=== PATIENT | male | born 1940 | race Caucasian/White ===

== ENCOUNTER 2016-06-15 04:46 | Emergency (ER) | payer MEDICARE, BC ==
--- NOTE | ~2016-06-15 | ER ---
PATIENT'S NAME: LEO AMAYA [facility] AGE: 76 Y [address] ROOM: [place] [address] LOCATION: [facility] ADMIT DATE: 06/15/2016 ER/Outpatient Report DISCHARGE DATE: 06/15/2016 FAMILY PHYSICIAN: Eugene Lott MD ATTENDING PHYSICIAN: Ivan Ndiaye CHIEF COMPLAINT: Hip pain. HISTORY OF PRESENT ILLNESS: The patient was at home this morning when he was trying to get up. He states that he had been to the restroom and got tangled up with the dogs and fell on his right side. This happened about an hour prior to arrival. He states he takes a daily aspirin. He has never had anything like this but reports that he has been feeling relatively normal otherwise. He noticed some swelling and bruising over the right hip region, which prompted him to come in this morning. He is accompanied by his . He denies any significant other medical issues. The patient explicitly denies head injury, loss of consciousness, or other concerning presentation. PAST MEDICAL HISTORY: Documented on the record and reviewed by me. SOCIAL HISTORY: Documented on the record and reviewed by me. MEDICATIONS: Documented on the record and reviewed by me. ALLERGIES: DOCUMENTED ON THE RECORD AND REVIEWED BY ME. REVIEW OF SYSTEMS: All systems were reviewed and negative except as noted in the HPI. PHYSICAL EXAMINATION: VITAL SIGNS: Blood pressure 126/60, pulse is 69, respiratory rate is 16, temperature 98.7, SpO2 is 97% on room air. GENERAL: An age-appropriate male, in no obvious pain or distress. NEUROLOGIC: Awake and alert. GCS is 15. No other focal abnormalities or deficits are appreciated. Pain with movement but no neurologic impairment. HEENT: Normocephalic, atraumatic. Eyes are PERRL. Oropharynx is clear. NECK: Supple. Trachea is midline. PATIENT'S NAME: LEO AMAYA [facility] AGE: 76 Y [address] ROOM: [place], [place] [address] LOCATION: [facility] ADMIT DATE: 06/15/2016 ER/Outpatient Report DISCHARGE DATE: 06/15/2016 FAMILY PHYSICIAN: Eugene Lott MD ATTENDING PHYSICIAN: Ivan Ndiaye CHEST: Heart is regular rate and rhythm with no murmurs. LUNGS: Clear to auscultation bilaterally throughout with no rhonchi, wheezes, or rales. ABDOMEN: Soft, nontender, and nondistended. No rebound or guarding. BACK: Does not have any focal tenderness, but there is diffuse tenderness beginning of the paraspinal region, radiating entirely throughout the right posterior gluteal region as well. It is firm. No erythema. ABDOMEN: Soft, nontender, and nondistended. No rebound, guarding, or masses. EXTREMITIES: Warm and well perfused. They are grossly unremarkable except for a large expected hematoma over the right gluteal region to the posterior hip. It is firm without induration. The skin is still blanchable. It is not particularly painful to range of motion activities. The right leg is not shortened, and there is no limited range of motion of the hip. LABORATORY DATA AND X-RAYS: Plain films of the pelvis and hip do not reveal any fractures per my read. Labs are mostly pending. WBC 6.0, hemoglobin of 10.9, and platelets of 84. Remainder of labs are pending. EKG is a paced rhythm with no significant morphologic changes compared to prior from 05/03/2016. IMPRESSION: 1. Fall. 2. Large right-sided hematoma of the posterior hip and pelvis. EMERGENCY DEPARTMENT COURSE: The patient was seen and evaluated as above. Based on the size of the hematoma and its rapid expansion, I am concerned that the patient may be bleeding. I obtained labs as noted above. No significant anticoagulation on board. The patient will require CT of the pelvis at minimum. No pelvic fracture appreciated. He did not require any pain medication while in the emergency department. I will hand care off this patient to Dr. Hardy at 0600 hours for further evaluation and treatment. Please see his dictation for completion of encounter and other details. MD JOSE NASH/ruben /[id number] d: 06/15/16 2359 t: 06/27/16 0826, OUTPATIENT REPORT
--- NOTE | ~2016-06-15 | ER ---
PATIENT'S NAME: LEO AMAYA [facility] AGE: 76 Y [address] ROOM: [place] [address] LOCATION: [facility] ADMIT DATE: 06/15/2016 ER/Outpatient Report DISCHARGE DATE: 06/15/2016 FAMILY PHYSICIAN: Eugene Lott MD ATTENDING PHYSICIAN: Ivan Ndiaye HISTORY OF PRESENT ILLNESS: The patient was initially seen and evaluated by Dr. Ndiaye. Please see his dictation for chief complaint, history of present illness, past medical history, past surgical history, social history, allergies, medications, review of systems, and physical exam. I did discuss the case with Dr. Ndiaye. Transfer of care was made to myself at shift change. I did see and evaluate the patient at 0556 hours. He does report he had a ground-level fall at approximately 3:30 in the morning. The patient does have a history of dementia. He has had frequent falls recently, per his who was at the bedside. He has swelling noted to the right gluteal region. He is on aspirin for anticoagulation. He was lying on the floor in an open area. Apparently, he gets disoriented at night with his dementia and has fallen multiple times recently. He was able to walk back to the bed with the assistance of his . He denies any loss of consciousness. PAST MEDICAL HISTORY: Dementia, coronary artery disease, and stroke. PAST SURGICAL HISTORY: CABG, valve repair, and ankle repair. SOCIAL HISTORY: The patient denies any tobacco, alcohol, or illicit drug use. ALLERGIES: NO KNOWN DRUG ALLERGIES. MEDICATIONS: Please see list. REVIEW OF SYSTEMS: All systems are reviewed by myself and are negative with the exception of those discussed in the HPI and Past Medical History. PHYSICAL EXAMINATION: VITAL SIGNS: Weight is 73 kg, blood pressure 126/60, pulse 69, respiratory rate 16, temperature 98.7, and oxygen saturation 97% on room air. GENERAL: The patient is a 76-year-old male who appears stated age, in no acute distress at this time. PATIENT'S NAME: LEO AMAYA [facility] AGE: 76 Y [address] ROOM: [place], [place] [address] LOCATION: [facility] ADMIT DATE: 06/15/2016 ER/Outpatient Report DISCHARGE DATE: 06/15/2016 FAMILY PHYSICIAN: Eugene Lott MD ATTENDING PHYSICIAN: Ivan Ndiaye HEENT: Head is normocephalic and atraumatic. Pupils are equal, round, and reactive to light and accommodation. Extraocular motions are intact. Nares are patent bilaterally. TMs are clear. Oropharynx is clear. NECK: Supple. There is no nuchal rigidity. CARDIOVASCULAR: Regular rate and rhythm. LUNGS: Clear to auscultation bilaterally. No wheezes, rales, or rhonchi. ABDOMEN: Soft, nontender, and nondistended. No rebound, rigidity, or guarding. MUSCULOSKELETAL: The patient moves all 4 extremities. He has normal range of motion. 2/4 pulses DP and PT, as well as radial pulses equal bilaterally. SKIN: The patient does have a larger hematoma and ecchymosis noted to the right gluteal region. He also has old-appearing bruises to the abdomen and the left chest wall. LABORATORY AND DIAGNOSTIC DATA: Labs and x-rays are obtained. EKG is obtained and shows V-paced rhythm with a rate of 70, QTc of 508, and AR of 163. Sgarbossa criteria are negative. No significant change from 05/03/2016. CT scan of the brain is obtained. I have discussed the results with the radiologist, shows no acute process. CT scan of the pelvis is obtained, shows nondisplaced right L4 transverse process fracture. Recommend spinal imaging. There is a large right flank soft tissue hematoma. CT imaging of the C, T, and L-spines are obtained. I have discussed the results with the radiologist. There is evidence of a transverse process fracture at L3-L4. CBC is unremarkable except for hemoglobin 10.9, hematocrit 31.2, and platelets 84. Coags are normal. Urinalysis is unremarkable. CMP is unremarkable. LFTs are unremarkable. Urinalysis is negative. IMPRESSION: 1. L3-L4 right transverse process fracture, nondisplaced. 2. Ground-level fall, with history of recent multiple falls. 3. Dementia. 4. Thrombocytopenia. 5. Initial visit. EMERGENCY DEPARTMENT COURSE: The patient was brought back to the examination room. Initially seen and evaluated by Dr. Ndiaye, please see his dictation. Transfer of care was made to myself. Laboratory analysis and imaging were reviewed. The patient was required to lay flat after the imaging while awaiting further imaging of the patient's lumbar spine. He did require a Khan due to immobility. After the results were obtained, they contacted Dr. Muniz and discussed the transverse process fracture with him. The patient's Khan was removed. He is up and ambulating throughout the emergency department. He has not required any pain medicine here in the emergency department. He is urinating on his own at this PATIENT'S NAME: LEO AMAYA [facility] AGE: 76 Y [address] ROOM: [place] [address] LOCATION: [facility] ADMIT DATE: 06/15/2016 ER/Outpatient Report DISCHARGE DATE: 06/15/2016 FAMILY PHYSICIAN: Eugene Lott MD ATTENDING PHYSICIAN: Ivan Ndiaye time. He has no saddle anesthesia. I have had a discussion with the patient's family about his issues with falling. They have said they have started to consider they may need more help, would like trying a walker at this time, and perhaps will use a bed alarm at night for assistance. I do feel this is reasonable at this time. I discussed I would like him to follow up with Dr. Lott and discuss with him as well as follow up with Dr. Muniz as needed for the back pain. I have written a prescription for [place] with sedation warning, as well as a walker. I have discussed return to care instructions including worsening symptoms, loss of bowel or bladder, saddle anesthesia, or any other concerns, to return to the emergency department as soon as possible. The patient is agreeable. Family is agreeable. They are without further questions at this time. DISPOSITION: The patient is discharged to home in good condition. DO CRISTOBAL BRISENO/ruben /[id number] d: 06/15/16 1338 t: 06/15/16 1652, OUTPATIENT REPORT
[~2016-06-15 04:46] MED LIST changes: -AYR50 ML NOSE
[2016-06-15 05:47] LABS: BASOPHIL % 0.7 %; EOSINOPHIL # 0.1 K/uL (0.0-0.5); HEMATOCRIT 31.2 % (37.0-53.0); HEMOGLOBIN 10.9 g/dL (11.0-16.0); IMMATURE GRANULOCYTE # 0.1 K/uL (0.0-0.3); IMMATURE GRANULOCYTE % 0.8 %; LYMPHOCYTE # 1.7 K/uL (0.8-4.0); LYMPHOCYTE % 28.3 %; MCH 35.3 pg (27.0-34.0); MCHC 34.9 gm/dL (32.0-36.5); MONOCYTE # 0.6 K/uL (0.0-1.0); MONOCYTE % 9.1 %; MPV 7.7 fl (9.4-12.4); NEUTROPHIL # (ANC) 3.6 K/uL (1.4-9.0); NEUTROPHIL % 59.1 %; NRBC % 0 /100WBC (0-0.00); PLATELET COUNT 84 K/uL (150-450); RBC 3.09 M/uL (3.50-5.50); RDW-CV 13.1 % (11.9-14.6)
[2016-06-15 05:56] LABS: INR - (THERAPEUTIC) 1.1 (0.9-1.1); PROTIME 11.9 SECONDS (9.6-11.1); PTT 29 SECONDS (25-32)
[2016-06-15 06:07] LABS: ALBUMIN 2.9 gm/dL (3.5-5.0); ALK PHOS 64 IU/L (33-138); ALT 23 IU/L (12-78); AST 35 IU/L (10-40); BLOOD UREA NITROGEN 21 mg/dL (6-24); CALCIUM 8.5 mg/dL (8.5-10.5); CHLORIDE 98 mMol/L (96-110); CO2 22 mMol/L (22-32); CREATININE 1.1 mg/dL (0.6-1.3); ESTIMATED GFR (MDRD EQUATION) > 60; SODIUM 132 mMol/L (135-145); TOTAL PROTEIN 6.4 g/dL (6.0-8.4)
[2016-06-15 06:10] LABS: TOTAL BILIRUBIN 0.8 mg/dL (0.0-1.5)
[2016-06-15 08:40] LABS: BILIRUBIN URINE NEGATIVE (NEGATIVE); BLOOD URINE 25 /UL (NEGATIVE); COLOR URINE STRAW (YELLOW); GLUCOSE URINE NEGATIVE (NEGATIVE); KETONE URINE NEGATIVE (NEGATIVE); LEUKOCYTES URINE NEGATIVE /UL (NEGATIVE); NITRITE URINE NEGATIVE (NEGATIVE); PROTEIN URINE NEGATIVE (NEGATIVE); SPEC GRAVITY URINE 1.005 (1.003-1.035); TURBIDITY URINE CLEAR (CLEAR); UROBILINOGEN URINE NORMAL (NORMAL)
[2016-06-15 08:56] LABS: EPITHELIAL URINE 0-2 #/HPF (NEGATIVE); RBC URINE 0-2 #/HPF (NEGATIVE); WBC URINE 0-2 #/HPF (NEGATIVE)
[2016-06-15 08:57] LABS: AMORPHOUS URINE 1+ (NEGATIVE); BACTERIA URINE RARE (NEGATIVE); MUCUS URINE 1+ (NEGATIVE)
[2016-06-15] MEDS ORDERED: AYR50 ML NOSE (13:39)
== END 2016-06-15 09:52 | disposition disaster alternative care site (69) ==
LOC: GACC 04:46
PROVIDERS: Emergency Medicine
DX: S32.039A Unspecified fracture of third lumbar vertebra, initial encounter for closed fracture (principal); S32.049A Unspecified fracture of fourth lumbar vertebra, initial encounter for closed fracture; S70.01XA Contusion of right hip, initial encounter; S30.0XXA Contusion of lower back and pelvis, initial encounter; F03.90 Unspecified dementia, unspecified severity, without behavioral disturbance, psychotic disturbance, mood disturbance, and anxiety; I25.10 Atherosclerotic heart disease of native coronary artery without angina pectoris; R29.6 Repeated falls; D69.6 Thrombocytopenia, unspecified; Z86.73 Personal history of transient ischemic attack (TIA), and cerebral infarction without residual deficits; Z79.01 Long term (current) use of anticoagulants; Z98.890 Other specified postprocedural states; Z79.82 Long term (current) use of aspirin; Z95.1 Presence of aortocoronary bypass graft; W18.30XA Fall on same level, unspecified, initial encounter
CPT/HCPCS: Q9967

== ENCOUNTER 2016-06-15 10:55 | Inpatient (IN) | payer MEDICARE, BC ==
[~2016-06-15] VITALS: Ht 172.7 cm; Wt 73.3 kg
--- NOTE | ~2016-06-15 | CON ---
PATIENT'S NAME: LEO AMAYA [facility] AGE: 76 Y [address] ROOM: [place] [address] [place] [facility] [place]: 06/15/2016 Consultation DISCHARGE DATE: FAMILY PHYSICIAN: JULIETH BURKETT MD ATTENDING PHYSICIAN: SKYE MCINTOSH V REFERRING PHYSICIAN: Adrian Mortensen MD Consult for Dr. Meehan. HISTORY OF PRESENT ILLNESS: This pleasant 76-year-old gentleman is referred for rehab evaluation, admitted on 06/15/2016 with history of dementia, was admitted with history of frequent falls that happened suddenly, he collapsed. No seizure disorder and does not know of any trauma, no biting of tongue. No other issues have been having this suddenly when he is up usually. Almost every time he stands up, he has it. This has been happening for the last few weeks and he has fallen for 6 times at least during the last 2 to 3 weeks. No witnessed seizure disorder. No fever. No headaches. Denied any nausea, vomiting. No fever, no cough, no sputum, no chest pain. PAST MEDICAL HISTORY: Past history of significant followin. Coronary artery disease, status post CABG and multiple stenting. 2. Atrial fibrillation, Watchman procedure. 3. Dementia, since he had 2 strokes before but recovered well. Had expressive aphasia during one of them and he recovered well after the surgical procedure on his heart. 4. Diet-controlled diabetes. 5. Cervical spine stenosis status post fusion. 6. Benign prostatic hypertrophy, depression. 7. Reflux gastric disease. 8. Distant history of tobacco use. At the present time alert, oriented, needs a little bit cueing on and off. His voice is clear and not wet. He seems to be struggling with his executive functions. He cannot multiply well, but he is also needing little cueing to remember details of people around him, like his and his daughter's name. At the present time, he is continent of his bowel bladder, tells me he has low back pain that radiates to his right buttock. PHYSICAL EXAMINATION: PATIENT'S NAME: LEO AMAYA [facility] AGE: 76 Y [address] ROOM: [place] [address] [place] [facility] [place]: 06/15/2016 Consultation DISCHARGE DATE: FAMILY PHYSICIAN: JULIETH BURKETT MD ATTENDING PHYSICIAN: SKYE MCINTOSH V VITAL SIGNS: Blood pressure 138/67, temperature 98.4, pulse 78, respirations 14. He is 5 feet 8 inches tall and weighs 73.3 kg. MEDICATIONS: He is on the following medications: 1. Zocor. 2. Protonix. 3. Namenda. 4. Mag-Ox 400. 5. Ferrous sulfate. 6. Tikosyn. 7. Vitamin B12. 8. Flomax. 9. Coreg. 10. Carafate. 11. NaCl 0.9%. 12. KCl. 13. Lorena-3. 14. Multivitamin. 15. Levothyroxine. 16. Folic acid. 17. Prozac. 18. TriCor. 19. Aspirin. 20. Zofran. 21. Oxycodone. ASSESSMENT AND PLAN: We will start him on PT, OT, and speech. I feel this gentleman is doing well. I feel that we need to also address if there is any stenosis in his back and spinal cord and also most probably he is having these symptoms secondary to postural hypertension as described, probably following on his blood pressure medication will be a good idea. I will follow on him closely. I feel that he can go on outpatient basis. He should not drive until he is re-evaluated. All the above was explained to his in detail and himself and his daughter, they verbalized understanding and in agreement. Thank you for this referral. I will be following alongside with you. ADRIAN MORTENSEN MD PATIENT'S NAME: LEO AMAYA [facility] AGE: 76 Y [address] ROOM: [place] [address] [place] [facility] [place] DATE: 06/15/2016 Consultation DISCHARGE DATE: FAMILY PHYSICIAN: JULIETH BURKETT MD ATTENDING PHYSICIAN: SKYE MCINTOSH V WMS/modl /[id number] d: 06/17/16 1429 t: 06/18/16 1512, CONSULTATION REPORT
--- NOTE | ~2016-06-15 | HP ---
PATIENT'S NAME: LEO AMAYA [facility] AGE: 76 Y [address] ROOM: [place] [address] LOCATION: [facility] [place] ADMIT DATE: 06/15/2016 History & Physical DISCHARGE DATE: FAMILY PHYSICIAN: JULIETH BURKETT MD ATTENDING PHYSICIAN: SKYE MCINTOSH V DATE OF SERVICE: CHIEF COMPLAINT: Frequent falls. HISTORY OF PRESENT ILLNESS: This is provided entirely by the family as the patient has fairly significant dementia. This is a 76-year-old male who has multiple cardiac comorbidities as listed below. He has had increasing frequency of falls at home. These falls described as usually just collapsing while walking around. They are not associated with any convulsive activity or loss of consciousness. It sounds like it is primarily a balance issue. He sustained 5-6 of these falls at home in the last several weeks. He was brought to the ER earlier today. He was found to have a large right flank hematoma as well as several transverse processes fractures. A workup here in the ER was unremarkable aside from those findings. He was sent home from the ER, and upon getting home, the patient has sustained another fall, though it appears that at this time he might have had a transient loss of consciousness, though after he woke up, the family denies any convulsive activity. The patient himself is unable to provide any helpful history. REVIEW OF SYSTEMS: Negative for any recent chest pain, shortness of breath, weight loss, nausea, vomiting, diarrhea, or palpitations. All systems have been reviewed and are negative aside from pertinent positives as mentioned above. PAST MEDICAL HISTORY: As provided by the family. 1. Significant coronary artery disease, status post CABG. 2. Multiple stents. 3. Atrial fibrillation. 4. Status post Watchman procedure. 5. Currently on Tikosyn, but not on anticoagulation. 6. Moderate dementia, seen by Neurology. 7. Diet-controlled diabetes. 8. Spinal fusion of the cervical spine. 9. Depression. 10. Benign prostatic hyperplasia. 11. AICD. PATIENT'S NAME: LEO AMAYA [facility] AGE: 76 Y [address] ROOM: [place] [address] LOCATION: [facility] [place] ADMIT DATE: 06/15/2016 History & Physical DISCHARGE DATE: FAMILY PHYSICIAN: JULIETH BURKETT MD ATTENDING PHYSICIAN: SKYE MCINTOSH V SOCIAL HISTORY: Significant for distant history of tobacco use. FAMILY HISTORY: Reviewed and is noncontributory. CURRENT MEDICATIONS: 1. Fenofibrate. 2. Coreg. 3. Fluoxetine. 4. Pantoprazole. 5. Fish oil. 6. Iron. 7. Flomax twice a day. 8. Carafate. 9. Magnesium oxide. 10. Potassium chloride. 11. 81 mg aspirin. 12. Tikosyn. 13. Synthroid. 14. Folic acid. 15. Multivitamin. 16. Namenda. 17. Simvastatin. 18. Gabapentin. 19. Pantoprazole. PHYSICAL EXAMINATION: VITAL SIGNS: At this point, his heart rate is 60, blood pressure is 84/50, saturating 100% on room air, afebrile, respirations are 16. GENERAL: Appears well-developed, well-nourished elderly male, in no acute distress. PSYCHIATRIC: Reveals the patient is alert and oriented x2, though I believe that his orientation to location fleeting, aside from that, neurologic exam is nonfocal. EYES: Show pupils are equal and reactive to light. LYMPHATIC: Shows no cervical lymphadenopathy. ENDOCRINE: Shows no thyromegaly. LUNGS: Clear to auscultation in all hernandez. HEART: Reveals regular rate and rhythm without appreciable murmurs, gallops, or rubs. ABDOMEN: Soft, nontender, nondistended. : Reveals no costovertebral angle tenderness. VASCULAR: 2+ pedal pulses. PATIENT'S NAME: LEO AMAYA [facility] AGE: 76 Y [address] ROOM: [address] [address] LOCATION: [facility] [place] ADMIT DATE: 06/15/2016 History & Physical DISCHARGE DATE: FAMILY PHYSICIAN: JULIETH BURKETT MD ATTENDING PHYSICIAN: SKYE MCINTOSH V MUSCULOSKELETAL: Shows some point tenderness over his thoracolumbar spine. SKIN: Reveals ecchymosis over his right abdomen as well as his right flank. LABORATORY DATA: Studies from the ER, significant for sodium 132, albumin of 2.9, MCV of 101, platelets of 84. Negative urine. EKG shows AV paced rhythm. Multiple imaging studies are significant for degenerative spine disease at lumbar spine, fractures at the right L3 and L4 transverse processes. ASSESSMENT AND PLAN: This is a 76-year-old male with advanced [id number] dementia and multiple falls. He will be admitted for observation. Individual problems to be addressed as follows, 1. Multiple falls. I did notice that his blood pressure is quite low in the ER. The patient is on Flomax b.i.d. as well as on carvedilol. We will workup orthostatic hypotension as one of the sources for his falls with several measurements of orthostatic vital signs. We may have to adjust medications based upon that. The patient does have an AICD and we will interrogate that, and consider cardiology consultation, if there are any abnormalities in the function of his AICD. I am wondering if gabapentin may somehow be related to his falls. We will evaluate that once the above investigations are completed. 1. The patient does have some microcytosis and we will check his B12 and folate levels as these may sometimes contribute. We will also check a TSH. 2. Atrial fibrillation. We will continue the patient on his current Tikosyn and Coreg. The Coreg may have to be adjusted, if we do find hypotension as an underlying etiology for his fall. 3. Diet-controlled diabetes. We will monitor his Accu-Cheks. 4. Coronary artery disease. We will continue him on his aspirin and statin. 5. Status post fall with multiple fractures of the transverse processes. We will get a pain control and PT/OT. 6. Flank hematoma. We will monitor his hemoglobin counts to make sure it is not a significant anemia that developed from his bleed. 7. Deep venous thrombosis prophylaxis. Will be nonpharmacologic given ongoing hemorrhage, but might have to be converted to pharmacologic later on. 8. Additional management depend on clinical course. Time dedicated to this patient's encounter is 35 minutes. PATIENT'S NAME: LEO AMAYA [facility] AGE: 76 Y [address] ROOM: [place] [address] LOCATION: [facility] [place] ADMIT DATE: 06/15/2016 History & Physical DISCHARGE DATE: FAMILY PHYSICIAN: JULIETH BURKETT MD ATTENDING PHYSICIAN: SKYE MCINTOSH V MD TODD DUNAWAY/modl /[id number] D: [id number] T: [id number] HISTORY & PHYSICAL
--- NOTE | ~2016-06-15 | DS ---
PATIENT'S NAME: LEO AMAYA [facility] AGE: 76 Y [address] ROOM: [address] [address] [place] [facility] [place]: 06[place]19/2016 Discharge Summary DISCHARGE DATE: 06/21/2016 FAMILY PHYSICIAN: Eugene Lott MD ATTENDING PHYSICIAN: Austen Jaramillo V PRINCIPAL DIAGNOSES: 1. Orthostatic hypotension. 2. Acute blood loss anemia. 3. Recurrent falls. 4. Bilateral gluteal hematoma. 5. Dementia. 6. Paroxysmal atrial fibrillation. 7. Diabetes. HOSPITAL COURSE: This is a 76-year-old male, history of dementia, diabetes, paroxysmal atrial fibrillation, not on anticoagulation due to recurrent falls, and high bleeding risk, who presents with an episode of what appeared to be a syncopal one. The patient does have a history of recurrent falls at home and stays at home with . The patient was noted to be orthostatic positive upon admission. The patient's home blood pressure medications were held, and he was given gentle IV fluid upon admission. Of note, the patient was known to be on Namenda 10 mg for dementia, and it is known to cause orthostatic symptoms. This had been held throughout the patient's admission, and the patient did well from orthostatic point of view during the hospitalization. The plan is to continue to hold and discontinue Namenda indefinitely. In addition to that, the patient was noted to have a hemoglobin drop of about 2 g, which is attributed to the large gluteal hematoma he has from injuries sustained from his falls. Hemoglobin today is 7.8, baseline is around 9, but hemoglobin trend had been stable around this number for the past 2 days. At this point, safe to discharge the patient and have him follow up with PCP in 1 week and recheck a hemoglobin trend. From the anemia standpoint, the patient appears to be asymptomatic from it. We will discharge the patient on p.o. iron supplement as well. PHYSICAL EXAMINATION: GENERAL: The patient is awake, alert, oriented x3, in no acute distress. CHEST: Clear to auscultation bilaterally. HEART: S1, S2. Regular rate and rhythm. ABDOMEN: Soft, nontender, nondistended. EXTREMITIES: Without edema. NEUROLOGIC: Grossly nonfocal. DISPOSITION: The patient to be discharged to [facility] [place] and is on her way to pick him up. PATIENT'S NAME: LEO AMAYA [facility] AGE: 76 Y [address] ROOM: [place] [address] [place] [facility] [place]: 06/19/2016 Discharge Summary DISCHARGE DATE: 06/21/2016 FAMILY PHYSICIAN: Eugene Lott MD ATTENDING PHYSICIAN: Austen Jaramillo V Greater than 30 minutes were spent in discharge planning and facilitating. MD MARLENE BARNHART/modl /[id number] d: 06/22/16 0308 t: 07/09/16 1418, DISCHARGE SUMMARY
--- NOTE | ~2016-06-15 | ER ---
PATIENT'S NAME: LEO AMAYA [facility] AGE: 76 Y [address] ROOM: [address] [address] LOCATION: [facility] [place] ADMIT DATE: 06/15/2016 ER/Outpatient Report DISCHARGE DATE: FAMILY PHYSICIAN: JULIETH BURKETT MD ATTENDING PHYSICIAN: SKYE MCINTOSH V TIME OF ARRIVAL: 1055 hours. TIME OF EVALUATION: 1055 hours. CHIEF COMPLAINT: Fall. HISTORY OF PRESENT ILLNESS: The patient is a 76-year-old male who presents to the emergency department today with a chief complaint of fall. The patient was seen and evaluated by myself just prior to this fall. The patient has had multiple falls recently, please see my previous dictation from previous ER encounter. Briefly, the patient has had those recent falls. In consultation with the patient's , we were going to attempt to transition the patient home with a walker for assistance in ambulation; however, when the patient was getting out of the car, his legs just gave out, and he fell once again. They were able to assist him to the garage walking where he had an episode where he flung his head back and eyes rolled into the back of his head. There was no seizure-like activity. Upon arrival here, the patient currently denies any chest pain. No shortness of breath. No fevers or chills. No nausea or vomiting. No diarrhea or constipation. He reports he feels fine at this time. He does have some right lumbar back pain and some mild pain along his gluteus region. PAST MEDICAL HISTORY: Heart disease and stroke. PAST SURGICAL HISTORY: CABG, valve repair, and ankle repair. SOCIAL HISTORY: The patient quit smoking 30 years ago. Denies any alcohol or illicit drug use. ALLERGIES: NO KNOWN DRUG ALLERGIES. MEDICATIONS: PATIENT'S NAME: LEO AMAYA [facility] AGE: 76 Y [address] ROOM: [address] [address] LOCATION: [facility] [place] ADMIT DATE: 06/15/2016 ER/Outpatient Report DISCHARGE DATE: FAMILY PHYSICIAN: JULIETH BURKETT MD ATTENDING PHYSICIAN: SKYE MCINTOSH V Please see list. REVIEW OF SYSTEMS: All systems are reviewed by myself and are negative with the exception of those discussed in the HPI and Past Medical History. PHYSICAL EXAMINATION: VITAL SIGNS: Weight 73 kg, blood pressure 93/67, pulse 91, respiratory rate 20, temperature 98.6, and oxygen saturation 98% on room air. GENERAL: The patient is a 76-year-old male who appears stated age, in no acute distress at this time. HEENT: Normocephalic, atraumatic. Pupils are equal, round, and reactive to light and accommodation. Extraocular motions are intact. Nares are patent bilaterally. TMs are clear. Oropharynx is clear. NECK: Supple. There is no nuchal rigidity. CARDIOVASCULAR: Regular rate and rhythm. LUNGS: Clear to auscultation. ABDOMEN: Soft, nontender, and nondistended. No rebound, rigidity, or guarding. MUSCULOSKELETAL: The patient has full range of motion. No bony tenderness to palpation. SKIN: The patient does have the multiple areas of old bruising on the abdomen and the anterior chest wall. He does have a hematoma in the right gluteal region. LABS AND X-RAYS: Please see previous labs and x-rays. IMPRESSION: 1. L3 and L4 transverse process fractures, acute. 2. Hematoma to right gluteal region. 3. Immobility. 4. Dementia. 5. Initial visit. EMERGENCY DEPARTMENT COURSE: The patient was brought back to the examination room. Seen and evaluated by myself. IV was established. Laboratory analysis was reviewed from previous visit. I have discussed with the family that the patient certainly seems to have some immobility issues. I have discussed with them that I would recommend admission to the hospital for further evaluation, treatment, and management. They are agreeable. I have contacted Dr. Mcintosh. He has seen and evaluated the patient here in the emergency department and does agree to accept the patient for further evaluation, treatment, and management. PATIENT'S NAME: LEO AMAYA [facility] AGE: 76 Y [address] ROOM: [address] [address] LOCATION: [facility] [place] ADMIT DATE: 06/15/2016 ER/Outpatient Report DISCHARGE DATE: FAMILY PHYSICIAN: JULIETH BURKETT MD ATTENDING PHYSICIAN: SKYE MCINTOSH V DISPOSITION: The patient is admitted under the care of the Hospitalist Service and Dr. Mcintosh in stable condition. JOCELYNE J DO CRISTOBAL OLIVA/bobl /[id number] d: 06/15/16 1450 t: 06/15/16 1652, OUTPATIENT REPORT
[2016-06-15] MEDS ORDERED: AYR50 ML NOSE (13:39)
[2016-06-15 14:53] LABS: HEMATOCRIT 32.5 % (37.0-53.0); HEMOGLOBIN 11.4 g/dL (11.0-16.0)
[2016-06-16 05:14] LABS: HEMOGLOBIN 9.8 g/dL (11.0-16.0)
[2016-06-17 05:06] LABS: BASOPHIL % 0.4 %; EOSINOPHIL # 0.1 K/uL (0.0-0.5); EOSINOPHIL % 1.8 %; HEMATOCRIT 26.1 % (37.0-53.0); IMMATURE GRANULOCYTE % 0.7 %; LYMPHOCYTE # 1.2 K/uL (0.8-4.0); LYMPHOCYTE % 20.5 %; MCH 35.7 pg (27.0-34.0); MCHC 34.5 gm/dL (32.0-36.5); MCV 103.6 fl (83.0-98.0); MONOCYTE # 0.7 K/uL (0.0-1.0); MONOCYTE % 13.1 %; MPV 8.3 fl (9.4-12.4); NEUTROPHIL # (ANC) 3.6 K/uL (1.4-9.0); NEUTROPHIL % 63.5 %; NRBC % 0 /100WBC (0-0.00); PLATELET COUNT 81 K/uL (150-450); RBC 2.52 M/uL (3.50-5.50); RDW-CV 13.2 % (11.9-14.6); WBC 5.7 K/uL (4.0-11.0)
[2016-06-17 05:22] LABS: ANION GAP 13.3 (10.0-19.0); CREATININE 1.2 mg/dL (0.6-1.3); POTASSIUM 4.3 mMol/L (3.7-5.1)
[2016-06-18 04:52] LABS: HEMATOCRIT 24.5 % (37.0-53.0); HEMOGLOBIN 8.2 g/dL (11.0-16.0)
[2016-06-19 05:06] LABS: HEMATOCRIT 24.3 % (37.0-53.0); HEMOGLOBIN 8.1 g/dL (11.0-16.0)
[2016-06-19 21:25] LABS: HEMATOCRIT 25.4 % (37.0-53.0); HEMOGLOBIN 8.4 g/dL (11.0-16.0)
[2016-06-19 21:41] LABS: ANION GAP 13.3 (10.0-19.0); BLOOD UREA NITROGEN 14 mg/dL (6-24); CALCIUM 9.1 mg/dL (8.5-10.5); CHLORIDE 101 mMol/L (96-110); CO2 23 mMol/L (22-32); CREATININE 1.1 mg/dL (0.6-1.3); ESTIMATED GFR (MDRD EQUATION) > 60; POTASSIUM 4.3 mMol/L (3.7-5.1); SODIUM 133 mMol/L (135-145)
[2016-06-20 05:07] LABS: BASOPHIL % 0.7 %; EOSINOPHIL # 0.2 K/uL (0.0-0.5); EOSINOPHIL % 3.5 %; HEMATOCRIT 23.6 % (37.0-53.0); IMMATURE GRANULOCYTE % 0.7 %; LYMPHOCYTE # 1.1 K/uL (0.8-4.0); LYMPHOCYTE % 26.3 %; MCV 106.3 fl (83.0-98.0); MONOCYTE # 0.5 K/uL (0.0-1.0); MONOCYTE % 12.3 %; MPV 8.5 fl (9.4-12.4); NEUTROPHIL # (ANC) 2.4 K/uL (1.4-9.0); NEUTROPHIL % 56.5 %; NRBC % 0 /100WBC (0-0.00); RBC 2.22 M/uL (3.50-5.50); RDW-CV 13.3 % (11.9-14.6); WBC 4.3 K/uL (4.0-11.0)
[2016-06-20 05:10] LABS: HEMOGLOBIN 7.9 g/dL (11.0-16.0); MCH 35.6 pg (27.0-34.0); MCHC 33.5 gm/dL (32.0-36.5); PLATELET COUNT 103 K/uL (150-450)
[2016-06-20 05:18] LABS: ALBUMIN 2.7 gm/dL (3.5-5.0); ANION GAP 15.1 (10.0-19.0); BLOOD UREA NITROGEN 12 mg/dL (6-24); CALCIUM 9.1 mg/dL (8.5-10.5); CHLORIDE 101 mMol/L (96-110); CO2 21 mMol/L (22-32); ESTIMATED GFR (MDRD EQUATION) > 60; MAGNESIUM 1.6 mg/dL (1.3-2.6); PHOSPHORUS 2.7 mg/dL (2.5-4.9); POTASSIUM 4.1 mMol/L (3.7-5.1); SODIUM 133 mMol/L (135-145)
[2016-06-21 05:27] LABS: HEMOGLOBIN 7.8 g/dL (11.0-16.0)
== END 2016-06-21 17:29 | disposition other institution (70) | DRG 605 ==
LOC: GACC 10:55 → GMSU 12:07
PROVIDERS: Family Medicine; Internal Medicine; Physician Assistant; ADMIT Internal Medicine
DX: S30.0XXA Contusion of lower back and pelvis, initial encounter (principal); I50.20 Unspecified systolic (congestive) heart failure; I48.1 Persistent atrial fibrillation; D62 Acute posthemorrhagic anemia; E87.1 Hypo-osmolality and hyponatremia; I95.2 Hypotension due to drugs; E86.0 Dehydration; E11.9 Type 2 diabetes mellitus without complications; F02.80 Dementia in other diseases classified elsewhere, unspecified severity, without behavioral disturbance, psychotic disturbance, mood disturbance, and anxiety; G30.9 Alzheimer's disease, unspecified; F32.9 Major depressive disorder, single episode, unspecified; I25.5 Ischemic cardiomyopathy; I25.10 Atherosclerotic heart disease of native coronary artery without angina pectoris; N40.0 Benign prostatic hyperplasia without lower urinary tract symptoms; R29.6 Repeated falls; T43.8X5A Adverse effect of other psychotropic drugs, initial encounter; W19.XXXA Unspecified fall, initial encounter; Y92.009 Unspecified place in unspecified non-institutional (private) residence as the place of occurrence of the external cause; Z95.810 Presence of automatic (implantable) cardiac defibrillator; Z95.1 Presence of aortocoronary bypass graft; Z87.891 Personal history of nicotine dependence; Z79.82 Long term (current) use of aspirin; Z98.1 Arthrodesis status
CPT/HCPCS: J2405; J7030; J7120

== ENCOUNTER → 2016-06-15 | Outpatient (CLI) | payer MEDICARE, BC ==
[~2016-06-15] MED LIST: ASPIRIN LO-DOSE81 MG PO; AYR50 ML NOSE; CARAFATE1 GM PO; COREG 3.1253.125 MG PO; FISH OIL 1,0001 EACH PO; FLOMAX0.4 MG PO; FOLIC ACID 40400 MCG PO; IRON65 PO; LASIX40 MG PO; LEVOTHROID(SYN75 MCG PO; MAG-OX-400(241400 MG PO; NAMENDA10 MG PO; NAMENDA5 MG PO; NEURONTIN300 MG PO; POTASSIUM CHLO20 ME1 PO; PROTONIX40 MG PO; PROZAC20 MG PO; THERAGRAN-M1 TAB PO; TIKOSYN250 MCG PO; TRICOR48 MG PO; VITAMIN B-121000 MCG PO; ZOCOR80 MG PO
== END | disposition disaster alternative care site (69) ==
LOC: GAMB 10:37
DX: R29.6 Repeated falls (principal); E03.9 Hypothyroidism, unspecified
CPT/HCPCS: A0425; A0429

== ENCOUNTER 2016-10-02 03:00 | Emergency (ER) | payer MEDICARE, BC ==
--- NOTE | ~2016-10-02 | ER ---
PATIENT'S NAME: LEO AMAYA [facility] AGE: 76 Y [address] ROOM: [place] [address] LOCATION: ED ADMIT DATE: 10/02/2016 ER/Outpatient Report DISCHARGE DATE: FAMILY PHYSICIAN: Eugene Lott MD ATTENDING PHYSICIAN: Blu Glynn Admission date and time are documented in the medical record. I saw the patient at 0315 hours. CHIEF COMPLAINT: Right upper anterior chest pain and right shoulder pain. HISTORY OF PRESENT ILLNESS: The patient is a 76-year-old male who got up to the bathroom when he started having some right upper anterior chest pain radiating to his right shoulder. He had some shortness of breath, diaphoresis, and nausea with this, no lightheadedness, no vomiting. The patient has a history of coronary artery disease. He has had a previous myocardial infarction. He has had multiple coronary artery stents and has had a 4-vessel coronary bypass graft. No recent coughs, colds, flus, fever, chills, or sweats. No fall or trauma. No syncope. No headache, eyes, ears, nose, throat, neck, or spine pain. No abdominal pain. No diarrhea. No urinary symptoms. No joint or muscle swelling, redness, or pain other than the right shoulder. No skin eruptions or rash. Does have some avj-sloodxa-refyzwiqu diabetes mellitus. No neuro changes other than peripheral neuropathy. No psych issues. HOME MEDICATIONS: See attached medication list. ALLERGIES: SULFA, REQUIP. SOCIAL HISTORY: Nonsmoker. Occasional intake of alcohol. SIGNIFICANT PAST MEDICAL HISTORY: Congestive heart failure, atherosclerotic ischemic heart disease with coronary artery disease, paroxysmal atrial fibrillation, nyj-bhewuyw-kocttgjyi diabetes mellitus type 2, recurrent falls, GI bleed, valvular heart disease, benign prostatic hypertrophy, gastroesophageal reflux, CVA, peripheral neuropathy, restless legs syndrome, remote tobacco and alcohol abuse, hypertension, and dyslipidemia. OPERATIONS: Four-vessel coronary bypass graft, cardiac catheterization with PTCA and PATIENT'S NAME: LEO AMAYA [facility] AGE: 76 Y [address] ROOM: [place] [address] LOCATION: ED ADMIT DATE: 10/02/2016 ER/Outpatient Report DISCHARGE DATE: FAMILY PHYSICIAN: Eugene Lott MD ATTENDING PHYSICIAN: Blu Glynn stenting, transurethral resection of the prostate, tonsillectomy, pacemaker and defibrillator placement, and Watchman procedure and placement. REVIEW OF SYSTEMS: All systems reviewed by me are negative with the exception of those discussed in the history of the present illness. PHYSICAL EXAMINATION: VITAL SIGNS: Temperature 98.3, tympanic, pulse 79, regular, respirations 16, blood pressure 200/95, and O2 sat on room air is 95%. HEAD: Normocephalic. EYES, EARS, NOSE, AND THROAT: Clear. NECK: Negative. LUNGS: Clear. HEART: Regular. Pulses are palpable. Some right upper anterior chest wall tender to palpation as well as right shoulder tenderness to palpation. ABDOMEN: Soft, flat, nondistended, nontender. Good bowel tones. No organomegaly or abnormal mass palpable. EXTREMITIES: Intact. NEUROVASCULAR: Intact. SKIN: Clear. No skin eruptions or rash. LABORATORY DATA: EKG showed no acute ST elevation. Pacemaker type rhythm x2 2 hours apart. CPK, CK-MB, troponin were normal x2, 2 hours apart. Chest x-ray showed no acute infiltrate. We will review x-ray with the radiologist. Laboratory D- dimer was elevated 1.27. We went ahead and did a CT scan of the chest with PE protocol. There was no evidence of pulmonary embolism. He had some mild bronchial wall thickening. He had a spiculated nodule in the left upper lobe that was concerning for malignancy. Abdominal aortic aneurysm that is being watched. The CT scan was read by Radiology, see dictated transcribed report. CRP was less than 0.29, TSH was 1.85, and pro-BNP was 981. CMS was normal except for low sodium of 130, magnesium was 1.58. White count is 5300, 61 segs, 28 lymphs, 7 monos, 3 eos, 1 baso, hemoglobin was 13.7 with hematocrit 37.4, and platelet count was low at 94,000. PTT was 29, pro-time is 11.4 with an INR 1.0. EMERGENCY DEPARTMENT COURSE: I did give the patient 4 baby aspirin. The patient's pain resolved. IMPRESSION: 1. Upper right anterior chest pain radiating to the right shoulder, etiology uncertain, doubt that this was cardiac in etiology. The patient does have known atherosclerotic ischemic heart disease with coronary artery disease, he has had a previous myocardial infarction, previous cardiac PATIENT'S NAME: LEO AMAYA [facility] AGE: 76 Y [address] ROOM: [place] [address] LOCATION: [facility] ADMIT DATE: 10/02/2016 ER/Outpatient Report DISCHARGE DATE: FAMILY PHYSICIAN: Eugene Lott MD ATTENDING PHYSICIAN: Blu Glynn catheterization with multiple stent placements, and also a 4-vessel coronary bypass graft. 2. Hypertension. 3. Thrombocytopenia with a platelet count of 94,000. 4. Spiculated nodular opacity in the left upper lobe concerning for malignancy on CT scan of the chest with pulmonary embolism protocol. 5. Mild congestive heart failure. 6. History of paroxysmal atrial fibrillation. 7. Quy-iwekkmi-mjfaonxln diabetes mellitus type 2. 8. Peripheral neuropathy. 9. Dyslipidemia. PLAN: The patient dismissed home. Observation. Activity as tolerated. Continue present home medications and care. Follow up with personal physician in 1 to 2 days for followup exam or as scheduled. Discussion ensued with the patient concerning my findings and recommendations, he and his understand. MD NOAH EDGE/modl /[id number] d: 10/02/16 0637 t: 10/02/16 1809, OUTPATIENT REPORT
[~2016-10-02 03:00] MED LIST changes: +AYR50 ML NOSE
[2016-10-02 03:20] LABS: BASOPHIL # 0.1 K/uL (0.0-0.2); BASOPHIL % 0.9 %; EOSINOPHIL # 0.1 K/uL (0.0-0.5); EOSINOPHIL % 2.5 %; HEMOGLOBIN 13.7 g/dL (11.0-16.0); IMMATURE GRANULOCYTE % 0.6 %; LYMPHOCYTE # 1.5 K/uL (0.8-4.0); LYMPHOCYTE % 27.9 %; MONOCYTE # 0.4 K/uL (0.0-1.0); MONOCYTE % 7.4 %; MPV 8.4 fl (9.4-12.4); NEUTROPHIL # (ANC) 3.2 K/uL (1.4-9.0); NEUTROPHIL % 60.7 %; NRBC % 0 /100WBC (0-0.00); PLATELET COUNT 94 K/uL (150-450); WBC 5.3 K/uL (4.0-11.0)
[2016-10-02 03:21] LABS: MCH 35.1 pg (27.0-34.0)
[2016-10-02 03:22] LABS: HEMATOCRIT 37.4 % (37.0-53.0); MCHC 36.6 gm/dL (32.0-36.5); MCV 95.9 fl (83.0-98.0)
[2016-10-02 03:34] LABS: INR - (THERAPEUTIC) 1.08 (0.92-1.07); PROTIME 11.4 SECONDS (9.8-11.4); PTT 29 SECONDS (25-32)
[2016-10-02 03:39] LABS: ALBUMIN 3.5 gm/dL (3.5-5.0); ALK PHOS 75 IU/L (33-138); ALT 18 IU/L (12-78); ANION GAP 14.8 (10.0-19.0); AST 26 IU/L (10-40); BLOOD UREA NITROGEN 13 mg/dL (6-24); CALCIUM 9.4 mg/dL (8.5-10.5); CHLORIDE 97 mMol/L (96-110); CO2 22 mMol/L (22-32); CPK 57 IU/L (35-332); CREATININE 1.1 mg/dL (0.6-1.3); ESTIMATED GFR (MDRD EQUATION) > 60; MAGNESIUM 1.5 mg/dL (1.8-2.6); POTASSIUM 3.8 mMol/L (3.7-5.1); SODIUM 130 mMol/L (135-145); TOTAL BILIRUBIN 0.8 mg/dL (0.0-1.5); TOTAL PROTEIN 7.7 g/dL (6.0-8.4)
[2016-10-02 05:42] LABS: CPK 51 IU/L (35-332)
== END 2016-10-02 06:00 | disposition disaster alternative care site (69) ==
LOC: GMED 03:00
PROVIDERS: Emergency Medicine
DX: R07.89 Other chest pain (principal); I11.0 Hypertensive heart disease with heart failure; I50.9 Heart failure, unspecified; I25.10 Atherosclerotic heart disease of native coronary artery without angina pectoris; I48.0 Paroxysmal atrial fibrillation; R91.1 Solitary pulmonary nodule; K21.9 Gastro-esophageal reflux disease without esophagitis; E78.5 Hyperlipidemia, unspecified; G25.81 Restless legs syndrome; D69.6 Thrombocytopenia, unspecified; E11.42 Type 2 diabetes mellitus with diabetic polyneuropathy; F10.10 Alcohol abuse, uncomplicated; Z90.6 Acquired absence of other parts of urinary tract; Z98.890 Other specified postprocedural states; Z95.1 Presence of aortocoronary bypass graft; Z95.5 Presence of coronary angioplasty implant and graft; Z88.2 Allergy status to sulfonamides; Z88.8 Allergy status to other drugs, medicaments and biological substances; Z90.89 Acquired absence of other organs; Z86.73 Personal history of transient ischemic attack (TIA), and cerebral infarction without residual deficits; Z95.0 Presence of cardiac pacemaker

== ENCOUNTER → 2016-10-09 | Outpatient (CLI) | payer MEDICARE, BC ==
--- NOTE | ~2016-10-09 | ECHO ---
Transthoracic Echocardiography Report (TTE) Demographics Patient Name LEO AMAYA Date of Study 10/09/2016 Patient Number [id number] Visit Number [id number] Date of 1940 Room Number Accession Number [id number] Gender Male Age 76 year(s) Referring Kaylie Waters MD Health Services Coordinator Ana Maria Fung RVT, Physician RDCS Physician Interpreting Aminah Wall MD Clinical Associate Physician Supervising Ordering Physician Aminah Wall MD, MD/MLP Nurse Stress Overhead Door Technician Conclusions Contractility Score Summary Global Left Ventricular Hypokinesis was noted. Summary The estimated left ventricular ejection fraction is 30-35%. Mild concentric left ventricular hypertrophy. Unable to determine diastolic function. Severely reduced right ventricular function with mildly dilated basal portion of the right ventricle. The left atrium is severely dilated. The right atrium is severely dilated. The mitral valve has been surgically repaired with a St. Chan #29 band. Mitral valve leaflets appear thickened. Mild-moderate mitral regurgitation by color Doppler. The tricuspid valve has been surgically repaired with a St. Chan #29 band. Mild tricuspid regurgitation by color Doppler. Recommendation The patient will be given the results of this study by the physician who ordered the exam. Procedure Type of Study TTE procedure:2D Echocardiogram. Procedure Date Date: 10/09/2016 Start: 10:01 AM Study Location: Echo Lab Technical Quality: Good visualization Indications:Coronary artery disease, History of tricuspid valve repair and History of mitral valve repair. Appropriate Use Criteria: 8 Patient Status: Routine Rhythm: Paced HR: 73 bpm BP: 112/59 mmHg M-Mode/2D Measurements LV Diastolic Dimension: 4.99 cm LV Systolic Dimension: 3.84 cm LV Septum Diastolic: 1.42 cm LV PW Diastolic: 1.38 cm AO Root Dimension: 2.8 cm Cardiac Output: 4.52 l/min AV Cusp Separation: 2 cm RV Diastolic Dimension: 3.45 cm LA volume: 108 ml LVOT: 2.2 cm RV Base: 4.3 cm LVOT VTI: 16.3 cm RV Mid: 2.19 cm LV Stroke volume: 61.93 ml TAPSE: 0.56 cm TDI-S': 6.2 cm/s Doppler Measurements AV Peak Velocity: 1.01 m/s MV Peak E-Wave: 1.35 m/s AV Peak Gradient: 4.08 mmHg AV Mean Gradient: 3 mmHg MV P1/2t: 54 msec LVOT Peak Velocity: 0.63 m/s MV Mean Gradient: 3 mmHg TR Velocity:2.67 m/s PV Peak Velocity: 0.9 m/s TR Gradient:28.52 mmHg PV Peak Gradient: 3.21 mmHg Estimated RAP:5 mmHg Estimated PASP: 33.52 mmHg Estimated RVSP: 34 mmHg A' Lateral Velocity: 0.01 m/s E' Septal Velocity: 0.04 m/s E' Lateral Velocity: 0.06 m/s Findings Left Ventricle Mild concentric left ventricular hypertrophy. Unable to determine diastolic function. Right Ventricle Severely reduced right ventricular function with mildly dilated basal portion of the right ventricle. Left Atrium The left atrium is severely dilated. There is no evidence of patent foramen ovale or atrial septal defect by color Doppler. Right Atrium The right atrium is severely dilated. IVC measures 1.69 cm with poor inspiratory collapse. Mitral Valve The mitral valve has been surgically repaired with a St. Chan #29 band. Mitral valve leaflets appear thickened. Mild-moderate mitral regurgitation by color Doppler. Aortic Valve The aortic valve is mildly sclerotic. No aortic regurgitation. Tricuspid Valve The tricuspid valve has been surgically repaired with a St. Chan #29 band. Mild tricuspid regurgitation by color Doppler. Pulmonic Valve Normal pulmonic valve structure and function. Pericardial Effusion No evidence of pericardial effusion. Miscellaneous Visualized portions of the aortic root and ascending aorta appear normal in size. Pleural Effusion No evidence of pleural effusion. Contractility Score LV regional wall motion:(0-Non visualized 1-Normal 2-Hypokinesis 3-Akinesis 4-Dyskinesis 5-Aneurysm) Signature dtt: Duke Burr dtd: 10/09/16 100 Physician Self Edit
--- NOTE | ~2016-10-09 | ESTC ---
Cardiac Perfusion Imaging Demographics Patient Name MONIQUE Singer Gender Male Patient Number [id number] Race Visit Number [id number] Ethnicity [employer] ID Room Number Accession Number [id number] Height 68 inches Date of 1940 Weight 140 pounds Interpreting Physician Aminah Wall MD Date of study 10/09/2016 Supervising /SUNNYP Dallin Vogel APRN NM Technologist Ebony Sanders Ordering Physician Aminah Wall MD Stress lead quality control technician Stress ECG Reading Dallin Vogel APRN Nurse [place] Physician Lopez Procedure Procedure Type: Nuclear Stress Test:Cardiolite Stress Test Procedure Start time: 10/09/2016 09:45 Indications: Family history of coronary artery disease. Risk Factors The patient risk factors include:prior PCI;prior CABG;former tobacco use. Conclusions Summary Perfusion Images: The overall quality of the study is good. Left ventricular cavity is noted to be enlarged on the stress and enlarged on the rest images. There is no evidence of abnormal lung activity. The right ventricle is not visualized an cannot be assessed. Stress SPECT images reveal a large sized area of severe decreased isotope uptake involving the entire inferior wall of the left ventricle. In addition, there is a small sized area of moderate decreased isotope uptake involving the apex. Rest SPECT images reveal a large sized area of severe decreased isotope uptake of the entire inferior wall . There is also a small sized area of moderate decreased isotope of the apical wall Gated SPECT imaging reveals decreased thickening . Overall left ventricular ejection fraction was calculated to be abnormal at 44%. Impression ECG portion of the stress test is clinically equivocal for ischemia by diagnostic criteria. Myocardial perfusion imaging is moderately abnormal. The images reveal a fixed defect in the entire inferior wall and apex consistent with infarct . Overall left ventricular systolic function was abnormal. This is a intermediate risk stress test. There are no previous studies for comparison. Stress Protocols Resting ECG AV Paced Pre-stress physical exam: Patient assessed by Marci DE GUZMAN prior to testing. Chest - CTA Cardio - RRR, S1, S2 Predicted HR: 144 bpm HR response: Appropriate BP response: Appropriate Reason for termination:Infusion complete ECG Findings Indeterminate ECG due to baseline abnormalities. Arrhythmias No rhythm abnormality. Symptoms Shortness of breath. Dizziness. Complications Procedure complication: None. Stress Interpretation Appropriate hemodynamic response to Lexiscan. No significant ST-T wave changes with Lexiscan. ECG portion is negative for ischemia by diagnostic criteria. Will correlate with nuclear images. Imaging Results Summed scores - Summed stress score: 16 - Summed rest score: 22 - Summed difference score: -6 Stress ejection Ejection fraction:43 % EDV :150 ml ESV :85 ml Stroke volume :65 ml LV mass :168 gr Imaging Protocols Rest Stress Isotope:Tc99m Sestamibi IV Isotope: Tc99m Sestamibi IV Isotope dose:10.8 mCi Isotope dose:32.4 mCi Date:10/09/2016 07:54 Date:10/09/2016 09:57 Technique: SPECT Technique: Gated Supine SPECT Supine Scan Time:45-60 minutes post Scan Time:45-60 minutes post injection injection Procedure Medications - Regadenoson (Lexiscan) 0.4 mg IV over 10-15 sec. I.V. 0.4 mg. Medical History Admission Data Admission date: 10/09/2016 Admission Time: 07:36 Hospital Status: Outpatient. Signatures dtt: dtd: 10/09/16 0945 Physician Self Edit
== END | disposition disaster alternative care site (69) ==
LOC: GRAD 07:36
DX: I25.10 Atherosclerotic heart disease of native coronary artery without angina pectoris (principal); I25.3 Aneurysm of heart; I34.0 Nonrheumatic mitral (valve) insufficiency; I07.1 Rheumatic tricuspid insufficiency; Z98.61 Coronary angioplasty status; Z95.1 Presence of aortocoronary bypass graft; Z87.891 Personal history of nicotine dependence
CPT/HCPCS: A9500

== ENCOUNTER → 2016-10-10 | Outpatient (CLI) | payer MEDICARE, BC | END | disposition disaster alternative care site (69) | LOC: GRAD 08:28 | DX: I71.4 Abdominal aortic aneurysm, without rupture (principal); I70.0 Atherosclerosis of aorta ==

== ENCOUNTER → 2016-10-22 | Outpatient (CLI) | payer MEDICARE, BC ==
[2016-10-22 12:49] LABS: BASOPHIL % 0.7 %; EOSINOPHIL # 0.1 K/uL (0.0-0.5); EOSINOPHIL % 2.8 %; HEMATOCRIT 36.9 % (37.0-53.0); HEMOGLOBIN 12.7 g/dL (11.0-16.0); IMMATURE GRANULOCYTE # 0.1 K/uL (0.0-0.3); IMMATURE GRANULOCYTE % 1.1 %; LYMPHOCYTE # 1.2 K/uL (0.8-4.0); LYMPHOCYTE % 28.2 %; MCH 34.4 pg (27.0-34.0); MCHC 34.4 gm/dL (32.0-36.5); MONOCYTE # 0.5 K/uL (0.0-1.0); MONOCYTE % 11.7 %; NEUTROPHIL # (ANC) 2.4 K/uL (1.4-9.0); NEUTROPHIL % 55.5 %; NRBC % 0 /100WBC (0-0.00); PLATELET COUNT 111 K/uL (150-450); RBC 3.69 M/uL (3.50-5.50); RDW-CV 13.6 % (11.9-14.6); WBC 4.4 K/uL (4.0-11.0)
[2016-10-22 13:05] LABS: ALBUMIN 3.4 gm/dL (3.5-5.0); ANION GAP 11.4 (10.0-19.0); CALCIUM 9.3 mg/dL (8.5-10.5); CREATININE 1.1 mg/dL (0.6-1.3); POTASSIUM 4.4 mMol/L (3.7-5.1); TOTAL BILIRUBIN 0.8 mg/dL (0.0-1.5); TOTAL PROTEIN 7.5 g/dL (6.0-8.4)
== END | disposition disaster alternative care site (69) ==
LOC: GRAD 11:55 → GLAB 12:00 → GRAD 12:00
PROVIDERS: Surgery Vascular Surgery
DX: I71.4 Abdominal aortic aneurysm, without rupture (principal); I71.02 Dissection of abdominal aorta; I70.1 Atherosclerosis of renal artery; K74.60 Unspecified cirrhosis of liver
CPT/HCPCS: Q9967

== ENCOUNTER 2016-11-14 18:54 | Emergency (ER) | payer MEDICARE, BC ==
--- NOTE | ~2016-11-14 | ER ---
PATIENT'S NAME: LEO AMAYA [facility] AGE: 76 Y [address] ROOM: [place] [address] LOCATION: [facility] ADMIT DATE: 11/14/2016 ER/Outpatient Report DISCHARGE DATE: 11/14/2016 FAMILY PHYSICIAN: Eugene Lott MD ATTENDING PHYSICIAN: Blu Beasley CHIEF COMPLAINT: Epistaxis. HISTORY OF PRESENT ILLNESS: This patient began to have nosebleeds on Saturday which was 4 days ago. He was able to stop the bleeding for the 1st 3 days, and then today he was [facility]. The first time he was there, the use the silver nitrate got stick to cauterize the bleeding, reportedly was easy to visualize. Then, he began to "gush blood" and was taken back and the left naris was packed. He has plans to follow up with them again tomorrow to have the packing removed. This evening, he was eating a meal, when he sneezed and reportedly his daughters saw blood come from his eyes which really scared him. He also noticed that the white packing that is in the left naris, now has a pink tinge to it. Therefore, he comes urgently to the emergency room. PAST MEDICAL HISTORY: He has had coronary artery bypass graft, numerous cardiac stents, valve repair. SOCIAL HISTORY: He does drink 2 to 3 alcoholic beverages per day. He did quit smoking in 1986. He does not show any tobacco. ALLERGIES: SULFA, REQUIP, AND NAMENDA. CURRENT MEDICATIONS: 1. Fenofibrate 48 mg daily. 2. Carvedilol 3.125 mg daily. 3. Fluoxetine 40 mg. 4. Pantoprazole 40 mg. 5. Fish oil. 6. Iron 65 mg. 7. Tamsulosin 0.4 mg. 8. Furosemide 20 mg. 9. Sucralfate 1 g. 10. Mag oxide 400 mg. 11. Potassium chloride 20 mEq. 12. Aspirin 81 mg. PATIENT'S NAME: LEO AMAYA [facility] AGE: 76 Y [address] ROOM: [place] [address] LOCATION: ED ADMIT DATE: 11/14/2016 ER/Outpatient Report DISCHARGE DATE: 11/14/2016 FAMILY PHYSICIAN: Eugene Lott MD ATTENDING PHYSICIAN: Blu Beasley 13. Tikosyn 250 mcg. 14. Levothyroxine 75 mcg. 15. Folic acid 1 mg. 16. Multivitamin. 17. Zocor 80 mg. 18. Gabapentin 300 mg 2 at bedtime. REVIEW OF SYSTEMS: CONSTITUTIONAL: The patient denies any recent illnesses. No fevers, chills, or sweats. HEENT: No complaints of headache. No visual changes. He has not had any recent upper respiratory illnesses. He has had epistaxis from the left naris as previously mentioned. He has not had problems with epistaxis since about 4 to 5 years ago when he had a few days where he had some bleeding from his nose very similar to what he is experiencing now. CARDIOVASCULAR: No complaints of chest pain or palpitations. RESPIRATORY: No shortness of breath or cough. GI: No nausea, vomiting, diarrhea, or constipation. No urgency, frequency, or dysuria. NEURO: No confusion, weakness, dizziness, paresthesias. MUSCULOSKELETAL: No complaints. HEMATOLOGY: No history of bleeding disorders. He denies bruising easily. SKIN: No new rashes or lesions. ENDOCRINE: No complaints. PSYCH: No complaints. The patient does mention that occurrence this evening did scare him quite a bit. PHYSICAL EXAMINATION: VITAL SIGNS: Temperature is 97.9, pulse is 73, respiratory rate 18, blood pressure 158/77. GENERAL APPEARANCE: He is alert, oriented, pale warm, and dry. He does appear anxious. HEENT: Head is normocephalic. Eyes: PERRL. EOMs are intact. There is no evidence of blood in or around his eyes. Conjunctiva is clear. Ears: TMs pearly siu with light reflex and landmarks easily visible. Nose: The right naris is clear of any blood. No erythema or edema. No rhinorrhea. The left naris is packed. The packing is very lightly colored pink. There is no active bleeding. Pharynx is without edema, erythema, exudate. Uvula is midline. Mucous membranes are moist. There is no blood in the posterior pharynx. NECK: Supple. No lymphadenopathy. LUNGS: Clear to anterior-posterior auscultation. No adventitious lung sounds. Respiratory effort is normal. HEART: Rate is regular. Normal S1, S2. No murmurs noted. ABDOMEN: Soft, nontender. Bowel sounds are present in all 4 quadrants. EXTREMITIES: Cap refill is less than 3 seconds. Peripheral pulses are 2+. No PATIENT'S NAME: LEO AMAYA [facility] AGE: 76 Y [address] ROOM: [place], [place] [address] LOCATION: [facility] ADMIT DATE: 11/14/2016 ER/Outpatient Report DISCHARGE DATE: 11/14/2016 FAMILY PHYSICIAN: Eugene Lott MD ATTENDING PHYSICIAN: Blu Beasley peripheral edema is noted. NEURO: Cranial nerves 2 through 12 are grossly intact. IMPRESSION: Epistaxis, currently not active. EMERGENCY DEPARTMENT COURSE: I spent time visiting with the patient and his about the recent epistaxis episodes that he has had. Reassurance was given. DISPOSITION/PLAN: The patient is to leave the packing in place and follow up at [facility] tomorrow as previously scheduled to have the packing removed. He knows that he can return tonight if he has any episodes of bright red bleeding. He and his both seem reassured and are willing to follow up as needed. ESTELA NINA APRN FOR BLU BEASLEY MD DP/modl /[id number] d: 11/15/163 t: 11/15/16 1817, OUTPATIENT REPORT
== END 2016-11-14 19:47 | disposition disaster alternative care site (69) ==
LOC: GMED 18:54
DX: R04.0 Epistaxis (principal); I25.10 Atherosclerotic heart disease of native coronary artery without angina pectoris; Z95.1 Presence of aortocoronary bypass graft; Z95.5 Presence of coronary angioplasty implant and graft; Z79.899 Other long term (current) drug therapy; Z79.82 Long term (current) use of aspirin; Z88.8 Allergy status to other drugs, medicaments and biological substances; Z88.2 Allergy status to sulfonamides; Z87.891 Personal history of nicotine dependence